=== PATIENT | male | born 1960 | race Native Hawaiian/Other Pacific Islander ===

== ENCOUNTER 2020-04-02 09:53 | Outpatient (CLI) | payer OTHER | END 2020-04-02 19:05 | disposition home or self-care (01) | LOC: RAD 09:53 | PROVIDERS: ATTEND Pain Medicine Interventional Pain Medicine | DX: M96.1 Postlaminectomy syndrome, not elsewhere classified (principal); M16.11 Unilateral primary osteoarthritis, right hip ==